=== PATIENT | male | born 1955 | race Hispanic/Latino ===

== ENCOUNTER 2020-02-12 08:47 | Emergency (ER) | payer OTHER ==
[~2020-02-12] VITALS: Ht 165.1 cm; Wt 65.8 kg
--- NOTE | 2020-02-12 09:04 | NUR ---
Blood/blood clot noted to trach site. Pt suctioned by AMBAR Harvey. RT present. Pt tolerated well. ERMD aware. O2 sat remains at 100%.
--- NOTE | 2020-02-12 09:11 | Emergency Department Note ---
History of Present Illnes History of Present Illness Chief Complaint: Respiratory History of Present Illness This is a 64 year old male that her acute care rehabilitation paperwork was CO VID 19 patient was straight. Unsure where he had his tracheostomy placed or when. Arrival Mode: EMS History limited by: other (vented) Onset (how long ago): hour(s) (3) Location: trach Radiation: Reports non-radiation Severity: mild Duration (how long): hour(s) (3) Timing of current episode: constant Progression: unchanged Chronicity: recurrent Context: Denies recent illness, Denies recent surgery Relieving factors: none Exacerbating factors: none Past Medical/Family History Physician Review I have reviewed the patient's past medical and family history. Any updates have been documented here. Past Medical History Unable to obtain PMH: critical patient, other (vented ) Review of Systems ROS Narrative Unable to obtain ROS: Unable to obtain due to, other (vented ) Physical Exam Related Data Allergies: Coded Allergies: No Known Allergies (Unverified , 02/12/20) Physical Exam CONSTITUTIONAL Constitutional: Present cachectic, Present ill appearing HENT HENT: Present normocephalic, Present atraumatic EYES Eyes: Reports PERRL, Reports conjunctivae normal NECK Neck: Present other (no active oozing extrernal to the trach ) PULMONARY Pulmonary: Present rhonchi (diffusely ) CARDIOVASCULAR Cardiovascular: Present regular rhythm GASTROINTESTINAL Abdominal: Present soft, Present nontender GENITOURINARY SKIN Skin: Present warm, Present dry MUSCULOSKELETAL Musculoskeletal: Present other (muscle wasting x 4 ) NEUROLOGICAL PSYCHOLOGICAL Assessment & Plan Medical Decision Making MDM A 64-year-old male that had recent tracheostomy placement from Covid 19, paperwork does not tell us when the trach was placed. We will call family members to sort this out, will need to be transferred out for bronchoscopy. No acute distress. Reassessment Reassessment Patient from arrival we started working on transferring given that he is in need of bronchoscopy. He finally were able to get a hold of family members who told us where he had his tracheostomy done. Patient was just now accepted to the hospital to perform the procedure. She remained stable, we'll monitor H&H. Assessment & Plan Final Impression: (1) Tracheostomy hemorrhage (2) Hemorrhage due to tracheostomy Depart Disposition: TRANS TO OTHER [facility] DEJAH WATTS MD Feb 12, 2020 09:11
--- NOTE | 2020-02-12 09:24 | NUR ---
MESSAGE LEFT WITH ALESSIA (MED RESORT) THAT WE NEED CALL BACK FROM NURSE INDY TO OBTAIN MORE INFO ON PATIENT
--- NOTE | 2020-02-12 09:39 | Diagnostic Imaging Report ---
X-ray chest frontal view History: Blood in the trach Comparison: None Findings: Lines and tubes: Endotracheal tube in expected location Central airways: Unremarkable Cardiac silhouette: Unremarkable Mediastinal silhouettes: Unremarkable Pleura: No pleural effusion, pneumothorax or thickening Diaphragms: See below Lungs: Diffuse bilateral interstitial and patchy airspace infiltrates. The infiltrates in the left lung base obscure the left hemidiaphragm. There is presence of dense air bronchograms on the left side. Skeletal structures: Unremarkable Extrathoracic soft tissues: Unremarkable Impression: Bilateral diffuse pulmonary incidental infiltrates of interstitial and patchy airspace type with a large patch of airspace infiltrate in the left mid and lower lung zones. Infection, inflammation, and less likely edema would be in the top differential diagnoses. Signed by: Sourav Baig MD on 02/12/2020 9:36 AM
--- NOTE | 2020-02-12 09:45 | NUR ---
SPOKE WITH INDY, NURSE FOR THE PATIENT AT [facility]. OBTAINED ADDITIONAL INFORMATION
--- NOTE | 2020-02-12 09:48 | NUR ---
CALLED [facility] TO VERIFY PATIENT HAS MEDICAL RECORDS THERE AND IT WAS CONFIRMED PER DAHLIA IN MED. RECORDS. COLLEEN (CLINICAL MASSAGE THERAPIST) TO INITIATE TRANSFER
[2020-02-12 09:55] LABS: ALANINE AMINOTRANSFERASE 17 IU/L (0-55); ALBUMIN/GLOBULIN RATIO 0.3 (0.8-2.0); ALKALINE PHOSPHATASE 233 IU/L (40-150); ANION GAP 11.3 mmol/L (8-16); CALCIUM 10.4 mg/dL (8.4-10.2); CARBON DIOXIDE 37 mmol/L (22-29); CHLORIDE 91 mmol/L (98-107); CREATININE, SERUM 0.79 mg/dL (0.72-1.25); EST GLOMERULAR FILTRATION RATE > 60 ML/MIN (60-); GLUCOSE 95 mg/dL (74-118); POTASSIUM 5.3 mmol/L (3.5-5.1); SODIUM 134 mmol/L (136-145)
[2020-02-12 09:59] LABS: BLOOD UREA NITROGEN < 2 mg/dL (7-26); BUN/CREATININE RATIO 3 (6-25)
[2020-02-12 10:02] LABS: BASOPHILS % 0.4 % (0.0-1.0); EOSINOPHILS # (AUTO) 0.5 (0.0-0.4); EOSINOPHILS % 4.7 % (0.0-6.0); HEMATOCRIT 23.8 % (38.2-49.6); HEMOGLOBIN 7.2 g/dL (14.0-18.0); LYMPHOCYTES # (AUTO) 1.7 (1.0-3.2); LYMPHOCYTES % 16.2 % (18.0-39.1); MEAN CORPUSCULAR HEMOGLOBIN 28.7 pg (28-32); MEAN CORPUSCULAR HGB CONC 30.3 g/dL (31-35); MEAN CORPUSCULAR VOLUME 94.8 fL (81-99); MONOCYTES # (AUTO) 0.8 (0.2-0.8); MONOCYTES % 7.9 % (4.4-11.3); NEUTROPHILS # (AUTO) 7.4 (2.1-6.9); NEUTROPHILS % 69.9 % (38.7-80.0); PLATELET COUNT 92 x10e3/uL (140-360); RED BLOOD COUNT 2.51 x10e6/uL (4.3-5.7); RED CELL DISTRIBUTION WIDTH 15.4 % (11.7-14.4)
[2020-02-12 10:08] LABS: INR 1.24; PROTHROMBIN TIME 16.2 seconds (11.9-14.5)
--- NOTE | 2020-02-12 11:09 | NUR ---
Report called to Chrissie Perea RN at [facility]. Pt will be transferred ER to ER. Pt notified. Pt shook head up and down to confirm understanding.
[2020-02-12 12:04] LABS: BASOPHILS # (AUTO) 0.1 (0.0-0.1); BASOPHILS % 0.5 % (0.0-1.0); EOSINOPHILS # (AUTO) 0.5 (0.0-0.4); EOSINOPHILS % 4.7 % (0.0-6.0); HEMATOCRIT 22.7 % (38.2-49.6); LYMPHOCYTES # (AUTO) 1.7 (1.0-3.2); LYMPHOCYTES % 17.5 % (18.0-39.1); MEAN CORPUSCULAR HEMOGLOBIN 28.5 pg (28-32); MEAN CORPUSCULAR HGB CONC 30.4 g/dL (31-35); MEAN CORPUSCULAR VOLUME 93.8 fL (81-99); MONOCYTES # (AUTO) 0.9 (0.2-0.8); NEUTROPHILS # (AUTO) 6.6 (2.1-6.9); NEUTROPHILS % 67.3 % (38.7-80.0); PLATELET COUNT 107 x10e3/uL (140-360); RED BLOOD COUNT 2.42 x10e6/uL (4.3-5.7); RED CELL DISTRIBUTION WIDTH 15.3 % (11.7-14.4)
[2020-02-12 12:09] LABS: HEMOGLOBIN 6.9 g/dL (14.0-18.0)
== END 2020-02-12 12:55 | disposition other institution (70) ==
LOC: ER 09:07
DX: J95.01 Hemorrhage from tracheostomy stoma (principal); I10 Essential (primary) hypertension; E11.9 Type 2 diabetes mellitus without complications; K21.9 Gastro-esophageal reflux disease without esophagitis; F32.9 Major depressive disorder, single episode, unspecified
CPT/HCPCS: 36415; 71045; 80053; 85025; 85610; 85730; 87400; 94002; 99285